=== PATIENT | female | born 1990 | race Asian ===

== ENCOUNTER 2022-10-31 04:24 | Emergency (ER) | payer OTHER ==
[~2022-10-31] VITALS: Ht 147.3 cm; Wt 50.3 kg
[2022-10-31 04:31] VITALS: BP 133/78
[2022-10-31] MEDS ORDERED: ONDA4TAB11 PO (04:44)
[2022-10-31] MEDS ORDERED: LOPE2CAP40 PO (04:44)
[2022-10-31] MEDS ORDERED: ZOLP10TA2 PO (04:44)
[2022-10-31] MEDS ORDERED: ONDANSETRON 4 MG TAB.RAPDIS ONE (04:45)
--- NOTE | 2022-10-31 04:50 | NUR ---
Patient discharged to home in stable condition. Written and verbal after care instructions given. Patient verbalizes understanding of instruction.
[2022-10-31] MEDS ORDERED: ONDANSETRON 4 MG TAB.RAPDIS SL ONE (05:00)
== END 2022-10-31 04:50 | disposition home or self-care (01) ==
LOC: ER 04:31
DX: A08.4 Viral intestinal infection, unspecified (principal); Z60.2 Problems related to living alone; Z79.899 Other long term (current) drug therapy
CPT/HCPCS: 99283; Q0162